=== PATIENT | female | born 1990 | race Hispanic/Latino ===

== ENCOUNTER 2017-06-19 07:02 | Day surgery (SDC) | payer OTHER ==
[2017-06-19 07:25] VITALS: BMI 19.8
[2017-06-19] MEDS ORDERED: Propofol 10 mg/ml Inj (20 ML) ONE (07:28)
[2017-06-19] MEDS ORDERED: Midazolam 2 MG/2 ML VIAL ONE (07:28)
[2017-06-19] MEDS ORDERED: Succinylcholine 200 mg/10 ml Inj IV ONE (07:28)
[2017-06-19 07:39] VITALS: RESP 20; O2SAT 100
[2017-06-19] MEDS ORDERED: Lactated Ringer's 1,000 ML IV ONE (07:49)
[2017-06-19] MEDS ORDERED: ePHEDrine 50 mg/ml Inj ONE (08:09)
[2017-06-19 08:13] LABS: HEMOGLOBIN 13.3 g/dL (12.0-16.0); MEAN CELL VOLUME 90.5 fl (81.0-99.0); MEAN CORPUSCULAR HEMOGLOBIN 30.4 pg (27.0-31.0); MEAN CORPUSCULAR HGB CONC 33.6 g/dL (33.0-37.0); RBC 4.36 Mil/uL (3.80-5.20); RED CELL DISTRIBUTION WIDTH 13.4 % (11.5-14.5); WHITE BLOOD COUNT 6.6 K/uL (4.8-10.8)
[2017-06-19] MEDS ORDERED: Dexamethasone 4 mg/1 ml ONE (08:23)
[2017-06-19 10:11] VITALS: BP 116/66; PULSE 69; TEMP 97.9
--- NOTE | 2017-07-07 14:41 | OP ---
PROCEDURE DATE: 06/19/2017 PREOPERATIVE DIAGNOSES: Incomplete , bleeding. POSTOPERATIVE DIAGNOSES: Incomplete , bleeding. PROCEDURE PERFORMED: Emergency D&C and suction. SURGEON: Jose Zamora MD TYPE OF ANESTHESIA: LMA. COMPLICATIONS: None. SPECIMEN: Products of conception sent to pathology. DESCRIPTION OF PROCEDURE: After adequate anesthesia was obtained, the patient was placed in dorsal lithotomy position. She was prepped and draped. The surgeon gowned and gloved. A time-out was taken according to the hospital policy. Exam under anesthesia was performed revealing an anteverted uterus about 6-7 weeks in size. Uterus was sounded to about 7 cm. The uterus was gently dilated and a 7 curved suction curette was inserted into uterine cavity. Suction was applied and abundant products of conception were obtained. There was no necessary to perform sharp curetting as the bleeding stopped immediately. The products of conception were sent to both Genetics and Pathology. At this point, the cervix was checked for hemostasis and appeared to be excellent. All the instruments were removed. The patient was then woken up and taken to the recovery room in excellent condition. Jose Zamora MD MTDAna
== END 2017-06-19 10:18 | disposition home or self-care (01) ==
LOC: H.OPSURG 07:02
PROVIDERS: ATTEND Obstetrics & Gynecology Reproductive Endocrinology
DX: O03.4 Incomplete spontaneous abortion without complication (principal)
CPT/HCPCS: 36415; 59812; 85027; 86850; 86900; 88300; 88305; J0330; J0690; J1100; J1885; J2001; J2210; J2250; J2704; J2765; J3010; J7030; J7120